=== PATIENT | female | born 1975 | race Caucasian/White ===

== ENCOUNTER 2019-06-28 19:21 | Emergency (ER) | payer MEDICAID, SELFPAY ==
[2019-06-28] VITALS (7 sets, daily range): BP systolic 101–162; BP diastolic 71–97; PULSE 70–99; RESP 13–24; TEMP 36.3–36.6; O2SAT 97–100
[2019-06-28 19:54] LABS: Basophils Percent Auto 0.3 % (0.2-1.2); Eosinophils Percent Auto 0.1 % (0-4.4); Hemoglobin 11.2 g/dL (12.0-15.0); Immature Granulocyte Absolute 0.03 K/mm3 (0.00-0.031); Immature Granulocyte Percent A 0.4 % (0-0.5); Lymphocytes Absolute Auto 0.93 K/mm3 (0.9-3.2); Lymphocytes Percent Auto 11.7 % (18.3-44.2); Mean Corpuscular Hemoglobin 26.2 pg (26-34); Mean Corpuscular Volume 81.8 fl (80-100); Mean Platelet Volume 10.4 fl (7.4-10.4); Monocytes Absolute Auto 0.4 K/mm3 (0.1-0.6); Monocytes Percent Auto 4.9 % (2.6-8.5); Neutrophils Absolute Auto 6.6 K/mm3 (1.3-6.7); Neutrophils Percent Auto 82.6 % (45.5-73.1); Platelet Count Result 441 k/mm3 (150-375); Red Blood Count 4.28 M/mm3 (4.2-5.4)
[2019-06-28 20:06] LABS: Alanine Aminotransferase 14 U/L (4-35); Albumin Level 4.1 g/dL (3.5-5.1); Alkaline Phosphatase 91 U/L (38-126); Aspartate Amino Transferase 24 U/L (14-36); Bilirubin,Total 0.4 mg/dL (0.2-1.3); Blood Urea Nitrogen 11 mg/dL (7-17); Carbon Dioxide 20 mmol/L (22-30); Chloride 106 mmol/L (98-107); Estimated CRCL calculation 87 ml/min; Estimated Glomerular Filt Rate > 60; Glucose 130 mg/dL (65-105); Lipase 56 U/L (23-300); Potassium 3.8 mmol/L (3.4-5.0); Sodium 136 mmol/L (137-145)
--- NOTE | 2019-06-28 20:13 | ECG_ITS ---
Measurements Intervals [place] Rate: 91 P: 53 NV: 174 QRS: 15 QRSD: 94 T: 44 QT: 343 QTc: 423 Interpretive Statements SINUS RHYTHM INCOMPLETE RIGHT BUNDLE BRANCH BLOCK DELAYED PRECORDIAL R/S TRANSITION BASELINE ARTIFACT- I, II, III, AVL, AVF, V1-V3 BORDERLINE ECG Electronically Signed On 06-29-2019 6:57:03 CDT by Arian Palm D.O.
--- NOTE | 2019-06-28 20:52 | PC.NURSE ---
PT'S FAMILY COMPLAINING LOUDLY SHE HAS NOT BEEN ROOMED. STATED THEY HAVE BEEN PULLING OTHER PEOPLE BACK. STATED THEY HAVE BEEN TOLD THE ED WAS CLEANING ROOMS, BUT THEY HAVE NOT BEEN ROOMED YET. DAUGHTER ALSO STATED SHE IS TIRED OF WAITING.
--- NOTE | 2019-06-28 21:17 | ED.NAVMDI ---
HPI - Nausea/Vomiting/Diarrhea General Chief complaint: Nausea/Vomiting/Diarrhea Stated complaint: n/v/d Time Seen by Provider: 06/28/19 21:13 Source: patient and RN notes reviewed Mode of arrival: ambulatory Limitations: no limitations History of Present Illness HPI Narrative: Pt is a 43 y/o female who presents to the ED with c/o nausea, vomiting, and diarrhea starting this evening. She notes that she has recently been visiting with young children in her family who have had nausea, vomiting, diarrhea, and weakness. Pt states that she developed nausea around 3-4 PM this afternoon. She notes that she then ate a chicken sandwich and fries from [employer]. Pt states that she took Zofran for her symptoms, but denies having any relief. She reports diarrhea starting shortly after she returned home this evening. Pt states that she began feeling lightheaded while defecating, but denies any LOC. She also reports an intermittent sharp pain in her upper ABD as well as chills, but denies any cough or rhinorrhea. MD elicited complaint: nausea, vomiting and diarrhea Onset (ago): hour(s) (several) Associated nausea: Yes Associated abdominal pain: Yes Location of pain: other (upper ABD) Pain consistency: colicky Quality: sharp Relieving factors: none Context: sick contacts Associated symptoms: fever/chills (chills) and other (lightheadedness) Related Data Allergies Allergy/AdvReac Type Severity Reaction Status Date / Time No Known Drug Allergies Allergy Mild Verified 11/21/13 06:01 Review of Systems Review of Systems: All systems reviewed & are unremarkable except as noted in HPI and below Constitutional: Constitutional: Reports chills ENT: Denies nasal discharge Respiratory: Respiratory: Denies cough Gastrointestinal: Gastrointestinal: Reports abdominal pain (upper ABD pain), Reports diarrhea, Reports nausea and Reports vomiting Neurologic: Reports other (lightheadedness) PMFSH Past Medical History Medical History Anxiety IBS (irritable bowel syndrome) Surgical History Surgical History History of open reduction and internal fixation (ORIF) procedure lt ankle Hx of section Family History Family History (Updated 10/04/14 @ 16:08 by DOCTOR UNKNOWN) Father Family history of malignant neoplasm, Onset Age: 74 Patient's father is , Onset Age: 74 Social History Social History Smoking status: Never smoker Alcohol intake: never Exam Narrative: Exam Narrative: GENERAL: Well-appearing, well-nourished, and in no acute distress. HEAD: Normocephalic, atraumatic. ENT: Mucous membranes moist. CHEST: Clear to auscultation. No respiratory distress. HEART: Regular rate and rhythm. Normal peripheral pulses. ABDOMEN: Soft, nontender, nondistended, normal active bowel sounds. EXTREMITIES: Normal range of motion. No edema. SKIN: Warm, dry, no rash. NEURO: Alert and oriented x3. PSYCH: Normal mood and affect. Course Course Emergency Course: Sx improved with bentyl/phenergan/fluids. D/c home. Vital Signs Vital signs: Vital Signs Temperature 97.3 F L 06/28/19 19:32 Pulse Rate 99 06/28/19 19:32 Respiratory Rate 24 H 06/28/19 19:32 Blood Pressure 101/81 06/28/19 19:32 Pulse Oximetry 98 06/28/19 19:32 Temperature 98 F 06/28/19 20:00 Pulse Rate 88 06/28/19 21:31 Respiratory Rate 15 06/28/19 21:15 Blood Pressure 121/92 H 06/28/19 21:31 Pulse Oximetry 98 06/28/19 21:15 MDM - Nausea/Vomiting/Diarrhea Lab Data Result diagrams: 06/28/19 19:42 06/28/19 19:41 Labs: Lab Results 06/28/19 06/28/19 Range/Units 19:41 19:42 WBC 8.0 (4.5-10.0) K/mm3 RBC 4.28 (4.2-5.4) M/mm3 Hgb 11.2 L (12.0-15.0) g/dL Hct 35.0 L (37.0-47.0) % MCV 81.8 (80-100) fl MCH 26.2 (26-34) pg M
[2019-06-28] MEDS: PROMETHAZINE HCL 25 MG/ML AMPUL 12.5 MG IV PUSH (21:35)
[2019-06-28] MEDS: SODIUM CHLORIDE 0.9% IV 1,000 ML 999 ML IV CONT (21:35)
[2019-06-28] MEDS: DICYCLOMINE HCL 10 MG CAPSULE 20 MG PO (21:38)
[2019-06-28 22:58] LABS: Add Urine Microscopic? YES; Appearance Urine Cloudy (Clear); Bacteria Urine Trace /hpf; Bilirubin Urine Negative (Negative); Blood Urine Negative (Negative); Color Urine Yellow (Yellow); Glucose Urine UA Negative (Negative); Ketones Urine Negative (Negative); Leukocyte Esterase Ur Negative LEU/UL (Negative); Mucus Urine Rare /lpf; Nitrate Urine Positive (Negative); Protein Urine Negative (Negative); RBC Urine 0-2 /hpf (0-2); Specific Grav Ur 1.012 (1.001-1.035); Squamous Epithelial Cell Urine Many /hpf (Few); Urobilinogen Urine Negative mg/dL (<2.0); WBC Urine 0-3 /hpf
== END 2019-06-28 22:55 | disposition home or self-care (01) ==
PROVIDERS: Emergency Medicine; Emergency Provider Emergency Medicine; PCP Nurse Practitioner Family
DX: K52.9 Noninfective gastroenteritis and colitis, unspecified (principal); K58.9 Irritable bowel syndrome, unspecified; I45.10 Unspecified right bundle-branch block; R94.31 Abnormal electrocardiogram [ECG] [EKG]
CPT/HCPCS: 36415; 80053; 81001; 83690; 85025; 93005; 96361; 96374; 99284; A9270; J2550; J7030